=== PATIENT | female | born 2000 | race Caucasian/White ===

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

== ENCOUNTER 2022-03-01 12:06 | Day surgery (SDC) | payer BC ==
[~2022-03-01 12:06] MED LIST: HYDROmorphone 0.5 MG/0.5 ML Syringe IVPUSH PRN; Lactated Ringers 1,000 ML IV SCH; Lidocaine 1%/Sod Bicarbonate in NS 8.4% 1 ML Syringe IDERM PRN; Ondansetron 4 MG/2 ML SDV IVPUSH PRN; Sodium Chloride 0.9% 10 ML Syringe FLUSH PRN; Sodium Chloride 0.9% 10 ML Syringe FLUSH SCH; fentaNYL 100 MCG/2 ML SDV IVPUSH PRN
[2022-03-01] MEDS ORDERED: fentaNYL 100 MCG/2 ML SDV ONE (12:33)
[2022-03-01] MEDS ORDERED: Propofol 200 MG/20 ML SDV ONE ×2 (12:33→12:34)
[2022-03-01] MEDS ORDERED: Bupivacaine 0.25% 10 ML SDV ONE (12:34)
[2022-03-01] MEDS ORDERED: Lidocaine 1% 5 ML VIAL ONE (12:34)
[2022-03-01] MEDS ORDERED: Ondansetron 4 MG/2 ML SDV ONE (12:34)
[2022-03-01] MEDS ORDERED: ceFAZolin 2 GM Vial ONE (13:15)
[2022-03-01] MEDS ORDERED: Ketorolac 30 MG/ML SDV IVPUSH SCH (14:26)
[2022-03-01] MEDS ORDERED: Acetaminophen/HYDROcodone 325-5 MG Tab PO SCH (15:22)
[2022-03-01 16:05] VITALS: BP 128/78; PULSE 78
== END 2022-03-01 16:02 | disposition home or self-care (01) ==
LOC: JD.SDS 12:06
PROVIDERS: ATTEND Orthopaedic Surgery
DX: R22.41 Localized swelling, mass and lump, right lower limb (principal); E03.9 Hypothyroidism, unspecified; J45.990 Exercise induced bronchospasm; Z79.899 Other long term (current) drug therapy; Z79.890 Hormone replacement therapy; Z90.49 Acquired absence of other specified parts of digestive tract; Z98.890 Other specified postprocedural states; Z79.82 Long term (current) use of aspirin
CPT/HCPCS: 11403; 76000; 81025; A9270; J0690; J1170; J1885; J2405; J2704; J3010; J3490; J7120; 00400